=== PATIENT | female | born 1950 | race Caucasian/White ===

== ENCOUNTER 2021-10-26 07:24 | Outpatient (CLI) | payer OTHER | END 2021-10-26 07:36 | disposition home or self-care (01) | LOC: MRI 07:24 | PROVIDERS: ATTEND Orthopaedic Surgery | DX: S83.201A Bucket-handle tear of unspecified meniscus, current injury, left knee, initial encounter (principal) | CPT/HCPCS: 73721 ==

== ENCOUNTER 2022-04-01 07:08 | Outpatient (CLI) | payer OTHER | END 2022-04-01 07:15 | disposition home or self-care (01) | LOC: TOM 07:08 → SONOGRAMA 07:08 | PROVIDERS: ATTEND Orthopaedic Surgery | DX: M25.561 Pain in right knee (principal); S83.200A Bucket-handle tear of unspecified meniscus, current injury, right knee, initial encounter | CPT/HCPCS: 73721 ==